=== PATIENT | male | born 1940 | race Caucasian/White ===

== ENCOUNTER → 2018-02-14 08:06 | Outpatient (CLI) | payer MEDICARE, SELFPAY | PROVIDERS: PCP Family Medicine; Visit Provider Family Medicine | DX: R55 Syncope and collapse (principal) | CPT/HCPCS: 93005; 93225; 93226 ==

== ENCOUNTER → 2018-02-18 08:35 | Outpatient (CLI) | payer MEDICARE, SELFPAY ==
--- NOTE | 2018-02-18 08:42 | CI_ITS ---
Cerebrovascular Exam IMPRESSIONS 1. The bilateral vertebral arteries are patent with normal antegrade flow. 2. Study suggests less than 20% stenosis involving the right internal carotid artery and the left internal carotid artery. History: Syncope. Risk factors: Hypertension. Hyperlipidemia. Carotid duplex study. Complete study and Doppler flow study including spectral analysis, color and fallon scale imaging. Height: Height: 172.7cm. Height: 68in. Weight: Weight: 67.1kg. Weight: 147.7lb. Body mass index: BMI: 22.5kg/m^2. Body surface area: BSA: 1.8m^2. Location: Vascular laboratory. Patient status: Outpatient. Tables: Arterial flow: + +--------+--------+ Location V sys V ed + +--------+--------+ Right CCA - proximal 101cm/s 25.1cm/s + +--------+--------+ Right CCA - distal 88.8cm/s 23.6cm/s + +--------+--------+ Right ECA 91.5cm/s -------- + +--------+--------+ Right ICA - proximal 68.9cm/s 24.8cm/s + +--------+--------+ Right ICA - mid 90.4cm/s 32.5cm/s + +--------+--------+ Right ICA - distal 93.7cm/s 35.3cm/s + +--------+--------+ Right vertebral 38cm/s -------- + +--------+--------+ Left CCA - proximal 130cm/s 23.6cm/s + +--------+--------+ Left CCA - distal 96.6cm/s 22cm/s + +--------+--------+ Left ECA 99.9cm/s -------- + +--------+--------+ Left ICA - proximal 66cm/s 20.7cm/s + +--------+--------+ Left ICA - mid 83.6cm/s 27cm/s + +--------+--------+ Left ICA - distal 89.9cm/s 35.2cm/s + +--------+--------+ Left vertebral 57.2cm/s -------- + +--------+--------+ Velocity ratios: + + + + + + Right, V sys Right, V ed Left, V sys Left, V ed + + + + + + Max ICA/dist CCA 1.06 1.5 0.93 1.6 + + + + + + (Report amended ) Electronically signed by: Chuck Rust [id number]
== END ==
PROVIDERS: PCP Family Medicine; Visit Provider Family Medicine
DX: R55 Syncope and collapse (principal)
CPT/HCPCS: 93880

== ENCOUNTER → 2018-03-31 14:04 | Outpatient (CLI) | payer MEDICARE, SELFPAY ==
[2018-03-31 15:12] LABS: Blood Urea Nitrogen 27 mg/dL (7-18); Creatinine,Serum 1.09 mg/dL (0.70-1.30); Estimated Glomerular Filt Rate 66 ml/min (>60); GFR (African American) 80 ML/MIN (>60)
== END ==
PROVIDERS: Visit Provider Internal Medicine Cardiovascular Disease
DX: Z01.818 Encounter for other preprocedural examination (principal)
CPT/HCPCS: 36415; 82565; 84520

== ENCOUNTER → 2018-04-01 06:23 | Outpatient (CLI) | payer MEDICARE, SELFPAY ==
--- NOTE | 2018-04-01 06:25 | CT_ITS ---
CT chest w con HISTORY: Syncope, abnormal EKG, abnormal Holter monitor ITS.REASON: syncope ORDERING PHYSICIAN: Edwin Kan MD PATIENT AGE: 77 years TECHNIQUE: Axial images obtained following the administration of 75 mL of Isovue 370 . Sagittal, and coronal reformatted images are also generated and reviewed. All CT scans at the facility use one or more dose reduction, viz: automated exposure control; ma/kV adjustment per patient size (including targeted exams where dose is matched to indication; i.e. head); or iterative reconstruction technique. FINDINGS: No mediastinal or hilar mass or adenopathy is evident. There is no evidence of aortic aneurysm or dissection. Coronary artery calcifications are present and are fairly extensive. No evidence of central pulmonary embolus. Calcified nodes are present in the mediastinum and bilateral alonso. 5 mm noncalcified nodule present in the right upper lobe inferiorly. A 5 mm subpleural noncalcified nodules present in the left lower lobe posterior laterally with an additional 6 mm nodule just medial to this which is noncalcified. Calcified granuloma is present in the left upper lobe posteriorly. No effusions or infiltrates. Upper abdominal images are unremarkable. No acute bony anomalies. There are degenerative changes in the thoracic spine with osteophytosis. IMPRESSION: 1. No acute finding. No evidence of aortic aneurysm or central pulmonary embolus. 2. Coronary artery calcifications consistent with coronary artery disease. 3. There are bilateral noncalcified pulmonary nodules measuring up to 6 mm in the left lower lobe. Consider 6 month follow-up to confirm short-term stability.
--- NOTE | 2018-04-01 06:25 | CA_ITS ---
PROCEDURE: 2-D M-mode and color Doppler study INDICATIONS FOR THE TEST: Chest pain COPD Heart Murmur Tobacco Smoking Palpitations Fatigue Syncope+ Edema Hypertension+Diabetes Mellitus Rheumatic Fever SOB GARCIA Obesity Hyperlipidemia+ Family History HD Additional History syncope, abn EKG PATIENT INFORMATION HEIGHT: 68 WEIGHT: 144 GENDER: Male B/P: 138/76 2-D/M-MODE INTERPRETATION: 2-D MEASUREMENTS OBSERVED VALUES IN CMS Right Ventricular Dimension (RVDd) 1.9 Interventricular Septum (Thickness)(IVsd) 0.9 Left Ventricular Internal Dimensions(LVIDd) 5.0 Left Ventricular Posterior Wall (Thickness)(LVPWd) 0.9 Aortic Root 3.5 Aortic Cusp Separation 2.2 Left Atrial Dimensions (LAD) 3.1 2D 1. Left atrium is mildly enlarged, left ventricle is normal size, there is mild qualitative concentric left ventricular hypertrophy, visually estimated ejection fraction 55% with no obvious regional wall motion abnormality. 2. The right atrium and right ventricle are normal size and contractility. 3. The aortic valve is minimally thickened and fibrosed. 4. The mitral and tricuspid valve leaflets are minimally thickened. 5. The pulmonic valve is poorly visualized. 6. No significant pericardial effusion noted. DOPPLER INTERROGATION: Doppler interrogation of the aortic, mitral and tricuspid valvular presence of mild mitral and tricuspid regurgitation, tricuspid and jet velocity insufficient for calculation of the right ventricular systolic pressure, diastolic parameters are inconclusive. CONCLUSION: 1. Mildly enlarged left atrium, normal left ventricular size, mild qualitative concentric left ventricular hypertrophy, visually estimated ejection fraction 55% with no obvious regional wall motion abnormality. Diastolic parameters are inconclusive. 2. Mild mitral and tricuspid regurgitation 3. No significant pericardial effusion noted.
--- NOTE | 2018-04-01 06:25 | NM_ITS ---
SPECT MYOCARDIAL PERFUSION SCAN, REST AND STRESS: EXERCISE STRESS: [facility] REVIEW QGS EF AND WALL MOTION EVALUATION: QPS - PERFUSION EVALUATION: HISTORY: Syncope, HTN PROCEDURE: Rest imaging performed after administration of10.55 millicuries Tc MIBI. Dose administered at6:40 a.m., with imaging thereafter. Stress imaging was then performed [id number] minutes of exercise stress. The patient achieved a heart [id number] with projected heart rate of123 . Resting BP161/90 with stress 185/80. At maximum exercise stress,31.6 millicuries Tc MIBI administered at8:25 a.m. with [id number] minutes thereafter. FINDINGS: Perfusion Evaluation: The single slice spect images as well as the [facility] bull's-eye data summary were reviewed. Wall Motion and Ejection Fraction Evaluation: Gated SPECT review and analysis used to evaluate these features. There is a 58 % left ventricular ejection fraction. There seems to be good wall motion Patient exercised 11 minutes on standard Frank protocol. During exercise he had initially isolated PVCs then ventricular trigeminy. Normal ST response to exercise. Stress images reveal decreased activity in the inferior lateral wall which improves with rest. Gated images calculated ejection fraction of 58% with normal wall motion IMPRESSION: Clinical correlation is advised. Excellent exercise capacity. Patient had ventricular ectopy during exercise. Lateral wall ischemia with normal ejection fraction normal wall motion.
--- NOTE | 2018-04-01 07:34 | HMH.ITSHM ---
rosuvastatin HCTZ METOPROLOL METFORMIN ASA CENTRUM SILVER ESTONIAN GINSENG COQ10 GLUCOSAMINE
== END ==
PROVIDERS: PCP Family Medicine; Visit Provider Internal Medicine Cardiovascular Disease
DX: R55 Syncope and collapse (principal); R94.31 Abnormal electrocardiogram [ECG] [EKG]
CPT/HCPCS: 71260; 78452; 93017; 93306; A9502; Q9967

== ENCOUNTER → 2018-06-25 07:53 | Outpatient (CLI) | payer MEDICARE, SELFPAY ==
[2018-06-25 09:47] LABS: Anion Gap 7.1 mEq/L (5-15); Blood Urea Nitrogen 20 mg/dL (7-18); Calcium 9.6 mg/dL (8.5-10.1); Carbon Dioxide 32 mmol/L (21.0-32.0); Chloride 107 mmol/L (98-107); Creatinine,Serum 1.06 mg/dL (0.70-1.30); Estimated Glomerular Filt Rate 68 ml/min (>60); GFR (African American) 82 ML/MIN (>60); Glucose 138 mg/dL (74-106); Potassium 5.1 mmoL/L (3.5-5.1); Sodium 141 mmol/L (136-145)
== END ==
PROVIDERS: Visit Provider Internal Medicine Cardiovascular Disease
DX: I25.10 Atherosclerotic heart disease of native coronary artery without angina pectoris (principal)
CPT/HCPCS: 36415; 80048

== ENCOUNTER → 2018-07-09 07:50 | Outpatient (CLI) | payer MEDICARE, SELFPAY ==
[2018-07-09 08:26] LABS: Anion Gap 12.8 mEq/L (5-15); Blood Urea Nitrogen 24 mg/dL (7-18); Calcium 9.1 mg/dL (8.5-10.1); Carbon Dioxide 30 mmol/L (21.0-32.0); Chloride 106 mmol/L (98-107); Creatinine,Serum 1.02 mg/dL (0.70-1.30); Estimated Glomerular Filt Rate 71 ml/min (>60); GFR (African American) 86 ML/MIN (>60); Glucose 130 mg/dL (74-106); Potassium 4.8 mmoL/L (3.5-5.1); Sodium 144 mmol/L (136-145)
== END ==
PROVIDERS: Visit Provider Physician Assistant
DX: I25.10 Atherosclerotic heart disease of native coronary artery without angina pectoris (principal)
CPT/HCPCS: 36415; 80048

== ENCOUNTER → 2019-03-17 08:19 | Outpatient (POV) | payer MEDICARE, SELFPAY | PROVIDERS: Visit Provider Dermatology | DX: Z00.00 Encounter for general adult medical examination without abnormal findings (principal) ==

== ENCOUNTER → 2020-03-25 08:26 | Outpatient (CLI) | payer MEDICARE, SELFPAY ==
--- NOTE | 2020-03-25 | CA_ITS ---
APPROVED REPORT Exam: Exercise Treadmill Technologist: Maegan Cueto, Ht: 5 ft 9 in Wt: 153 lbs BSA: 1.84 m2 HR: 78 bpm BP: 114/66 mmHg Rhythm: SINUS RHYTHM WITH PVC Medical History Medical History: HTN Medications: Metoprolol,,,,, Losartan,,,,, TriaMeRTINE,,,,, Allergies: No known drug allergies Cardiac Risk Factors: HTN Stress Test Details Test: Frank HR Resting HR: 81 bpm Max Heart Rate (APMHR): 143 bpm Max HR Achieved: 152 bpm Target HR (85% APMHR): 121 bpm % of APMHR: 106 Recovery HR: 103 bpm BP Resting BP: 127.0/67.0 mmHg Max BP: 160.0/70.0 mmHg Recovery BP: 125.0/88.0 mmHg ECG Resting ECG: SINUS RHYTHM WITH PVC Clinical Exercise duration: 09:27 min Highest Stage Achieved: Exercise capacity: 10.1 METs Stress ECG Conclusion FRANK PROTOCOL COMPLETED. EXERCISED 09:27. METS = 10.1. MAX BP 160/70. MAX HEART RATE 152 BPM WHICH IS 106% OF PM FOR AGE. STOPPED DUE TO SHORTENSS OF BREATH. POSITIVE FOR CHEST PAIN AND SOA AT PEAK EXERCISE. RESOLVED IN RECOVERY. OCCASIONAL PVC. 2 VENTRICULAR COUPLETS NOTED. GREATER THAN 1.5MM ST DEPRESSION IN RECOVERY. GXT ONLY. APPROPRIATE BP RESPONSE.VENTRICULAR COUPLET(2)noted.GOOD EXERCISE CAPACITY.POSITIVE TEST FOR ISCHEMIA. Test Summary RECOVERY 04:00 0.0 0.0 85 . 149/ 80 . . REST . . . . . . . Sitting REST . . . . . . . Sitting REST 03:05 0.0 0.0 81 . 127/ 67 . . Stage 1 01:00 10.0 1.7 93 . . . . Stage 1 02:00 10.0 1.7 103 . . . . Stage 1 03:00 10.0 1.7 109 . 132/ 68 . . Stage 2 01:00 12.0 2.5 115 . . . . Stage 2 02:00 12.0 2.5 120 . 142/ 70 . . Stage 2 03:00 12.0 2.5 124 . 142/ 70 . . Stage 3 01:00 14.0 3.4 132 . . . . Stage 3 02:00 14.0 3.4 136 . 160/ 70 . . Stage 3 03:00 14.0 3.4 138 . 160/ 70 . . Stage 4 00:27 16.0 4.2 144 . . . Stop exercise at 09:27 RECOVERY 01:00 0.0 0.0 103 . . . . RECOVERY 02:00 0.0 0.0 103 . 125/ 88 . . RECOVERY 03:00 0.0 0.0 93 . 149/ 80 . . RECOVERY 04:00 0.0 0.0 85 . 149/ 80 . . RECOVERY 05:00 0.0 0.0 85 . 132/ 71 . . RECOVERY 06:00 0.0 0.0 80 . 138/ 65 . . RECOVERY 06:10 0.0 0.0 82 . 138/ 65 . . Electronically signed by : Esvin Sales, 03/25/2020 16:33:09
== END ==
PROVIDERS: PCP Family Medicine; Visit Provider Family Medicine
DX: R07.89 Other chest pain (principal); I25.10 Atherosclerotic heart disease of native coronary artery without angina pectoris
CPT/HCPCS: 93017

== ENCOUNTER 2020-04-04 08:59 | Day surgery (SDC) | payer MEDICARE, SELFPAY ==
[2020-04-04] VITALS (13 sets, daily range): BP systolic 105–159; BP diastolic 55–90; PULSE 53–83; RESP 16–18; TEMP 36.9; O2SAT 91–97; BMI 23.8
--- NOTE | 2020-04-04 | IR_ITS ---
APPROVED REPORT Patient Location: Outpatient PROCEDURES Left heart catheterization Left ventriculogram Selective coronary angiogram Drug-eluting stent deployment to the ostial proximal mid and distal dominant chronically occluded right coronary artery Angioplasty to the posterior lateral ventricular branch INDICATION Abnormal Myoview, Angina pectoris, Coronary artery disease, Chronically occluded right coronary artery Informed consent was obtained prior to the procedure. COMPLICATIONS NONE Estimated Blood Loss: LESS THAN 10 ML TECHNIQUE 1% lidocaine used to anesthetize the right groin the right femoral artery was accessed via the Salinger technique and a 4 Syrian sheath was placed in the right femoral artery. A JL 5 JR4 catheter was used to perform left heart catheterization left ventriculogram and selective coronary angiogram. At the end of the diagnostic angiogram therapeutic heparin was administered and the 4 Syrian sheath was exchanged for a 6 Syrian sheath. A long 45 cm sheath was required due to tortuosity and inability to adequately torque the catheter. An AL 0.75 guide catheter was used to intubate the chronically occluded right coronary artery and a Choice PT extra-support wire was used to traverse the occlusion. A 3.0 x 38 mm resolute adam stent was placed in the proximal segment and deployed at 12 catrina. An additional 3 mm x 12 mm balloon was then deployed twice distally to open the chronic occlusion. A 3 mm x 22 mm resolute adam stent was then placed distal to the first stent yet still overlapping it and deployed at 18 catrina. The balloon was brought back and deployed at 22 and 24 catrina up and down the right coronary artery. An additional 3.5 x 12 mm resolute adam stent was placed in the ostium and deployed at 20 catrina reducing the stenosis to 0%. A 2 mm balloon was deployed in the posterior lateral branch for 60 seconds in order to open and occlusion which was unknown to be either chronic occlusion of the posterior lateral branch or possible thrombus. The vessel was open after the angioplasty without excellent results. After achieving excellent angiographic results in the right coronary artery from CANDICE 0 flow to CANDICE-3 flow the apparatus was removed the groin was reprepped gloves were changed sheath was removed good hemostasis was achieved using Perclose device patient was transferred to the postop holding area in stable condition. ANGIOGRAPHIC RESULTS The left main artery Normal The left anterior descending artery Has proximal 30% stenosis mid vessel tandem 40 to 50% stenoses. The circumflex artery Nondominant vessel has mild 10 to 20% luminal irregularities The right coronary artery Is a large dominant vessel and proximally occluded. At the end of the procedure the vessel was widely patent with excellent antegrade flow The MYLES ventriculogram reveals Normal 65% The left ventricular end-diastolic pressure 20 mmHg IMPRESSION Chronically occluded proximal dominant right coronary artery Successful revascularization of the ostial proximal mid distal dominant right coronary artery 100% occlusion reduced to 0% with 3 drug-eluting stents as described above Partially successful angioplasty of the posterior lateral ventricular branch unknown if it is chronic or acutely occluded Normal ejection fraction Elevated LVEDP PLAN 1. Brilinta 90 twice daily plus aspirin 81 mg daily for 1 year 2. LDL less than 55 3. Cardiac rehabilitation 4. Avoidance of tobacco products 5. Risk factor modification Electronically signed by : Damian Paz, 04/04/2020 12:51:00
[2020-04-04 09:36] LABS: Chloride 104 mmol/L (98-107); Potassium 4.3 mmoL/L (3.5-5.1); Sodium 138 mmol/L (136-145)
[2020-04-04 09:39] LABS: Blood Urea Nitrogen 24 mg/dl (9-20); Creatinine Clearance Estimated 62 mL/min (50-200); Estimated Glomerular Filt Rate 72 ml/min (>60); GFR (African American) 88 ML/MIN (>60)
[2020-04-04 09:40] LABS: Anion Gap 6.3 mEq/L (5-15); Calcium 9.6 mg/dl (8.4-10.2); Carbon Dioxide 32 mmol/L (22.0-30.0); Glucose 151 mg/dl (74-100)
[2020-04-04 09:41] LABS: Basophils # 0.1 K/mm3 (0-0.2); Basophils % 0.7 % (0.1-2.0); Eosinophils # 0.1 K/mm3 (0.0-0.4); Eosinophils % 1.9 % (0.1-12.0); Hematocrit 47.9 % (42.0-52.0); Hemoglobin 15.3 g/dL (14.1-18.0); Lymphocytes # 1.8 K/mm3 (0.7-4.5); Lymphocytes % 24.7 % (10-50); Mean Corpuscular Hemoglobin 30.4 pg (27.0-31.2); Mean Corpuscular Volume 94.8 fl (80-94); Monocytes # 0.4 K/mm3 (0.1-1.0); Monocytes % 5.6 % (1.7-9.3); Neutrophils # 4.8 K/mm3 (1.8-7.8); Neutrophils % 67.1 % (37.0-80.0); Platelet Count 279 K/mm3 (142-424); Red Blood Count 5.05 M/mm3 (4.60-6.20); Red Cell Distribution Width 13.2 % (11.5-17.5); White Blood Count 7.1 K/mm3 (4.8-10.8)
[2020-04-04 15:14] LABS: CATHL Activated Clotting Time 222 SEC (74-125)
--- NOTE | 2020-04-04 15:53 | HMH.PHACLD ---
Homer Shirley has received discharge medication counseling on the following medications: Patient currently taking losartan 50 mg daily, metoprolol succinate 12.5 mg daily, and rosuvastatin 10 mg hs. adding Brilinta 90 mg bid and aspirin 81 mg daily. Patient's first fill for Bril[facility].
== END 2020-04-04 15:55 | disposition home or self-care (01) ==
LOC: CATHLAB 09:00
PROVIDERS: PCP Family Medicine; Visit Provider Internal Medicine
DX: R94.30 Abnormal result of cardiovascular function study, unspecified (principal); I25.118 Atherosclerotic heart disease of native coronary artery with other forms of angina pectoris; Z79.84 Long term (current) use of oral hypoglycemic drugs; E11.9 Type 2 diabetes mellitus without complications; I10 Essential (primary) hypertension; E78.5 Hyperlipidemia, unspecified; I25.82 Chronic total occlusion of coronary artery
CPT/HCPCS: 80048; 85025; 85347; 92928; 92929; 93458; 99152; 99153; C1725; C1760; C1769; C1876; C9600; C9601; J1644; Q9967

== ENCOUNTER 2020-04-11 14:37 | Outpatient (RCR) | payer MEDICARE, SELFPAY | END 2020-05-09 13:37 | disposition home or self-care (01) | LOC: PT 14:37 | PROVIDERS: Visit Provider Internal Medicine | DX: Z95.5 Presence of coronary angioplasty implant and graft (principal) | CPT/HCPCS: 93798 ==

== ENCOUNTER → 2020-04-14 08:04 | Outpatient (CLI) | payer MEDICARE, SELFPAY ==
[2020-04-14 08:26] LABS: Chloride 107 mmol/L (98-107); Potassium 4.4 mmoL/L (3.5-5.1); Sodium 138 mmol/L (136-145)
[2020-04-14 08:29] LABS: Anion Gap 10.4 mEq/L (5-15); Blood Urea Nitrogen 24 mg/dl (9-20); Carbon Dioxide 25 mmol/L (22.0-30.0); Estimated Glomerular Filt Rate 72 ml/min (>60); GFR (African American) 88 ML/MIN (>60)
[2020-04-14 08:30] LABS: Calcium 9.5 mg/dl (8.4-10.2); Glucose 159 mg/dl (74-100)
[2020-04-14 08:52] LABS: Basophils # 0.1 K/mm3 (0-0.2); Eosinophils # 0.2 K/mm3 (0.0-0.4); Eosinophils % 2.3 % (0.1-12.0); Hematocrit 47.9 % (42.0-52.0); Hemoglobin 15.5 g/dL (14.1-18.0); Lymphocytes # 1.7 K/mm3 (0.7-4.5); Lymphocytes % 24.7 % (10-50); Mean Corpuscular HGB Conc 32.2 g/dL (31.8-35.4); Mean Corpuscular Hemoglobin 30.7 pg (27.0-31.2); Mean Corpuscular Volume 95.3 fl (80-94); Mean Platelet Volume 7.4 fl (7.4-10.4); Monocytes # 0.4 K/mm3 (0.1-1.0); Neutrophils # 4.7 K/mm3 (1.8-7.8); Platelet Count 254 K/mm3 (142-424); Red Blood Count 5.03 M/mm3 (4.60-6.20); Red Cell Distribution Width 13.6 % (11.5-17.5)
--- NOTE | 2020-04-14 10:11 | CA_ITS ---
APPROVED REPORT Hand Or Machine Paster: Nicole Cobb RT(R) Indications Patient had a heart cath 04/04/20. He presents today with a knot in the groin. States the knot has been there since his heart cath. The knot was sore initially but isn't anymore. Risk Factors Hypertension Findings Groin: Right Negative Conclusion No evidence of pseudoaneurysm, hematoma, or AV fistula of the right groin. Electronically signed by : Chuck Rust MD 04/14/2020 16:16:33
== END ==
LOC: LAB 08:05 → RT 10:12
PROVIDERS: PCP Family Medicine; Visit Provider Internal Medicine
DX: E78.5 Hyperlipidemia, unspecified (principal); I10 Essential (primary) hypertension; I25.10 Atherosclerotic heart disease of native coronary artery without angina pectoris; I77.0 Arteriovenous fistula, acquired; Z95.5 Presence of coronary angioplasty implant and graft
CPT/HCPCS: 36415; 80048; 85025; 93926

== ENCOUNTER → 2020-05-12 10:44 | Outpatient (CLI) | payer MEDICARE, SELFPAY | PROVIDERS: PCP Family Medicine; Visit Provider Internal Medicine Cardiovascular Disease | DX: E78.5 Hyperlipidemia, unspecified (principal); I10 Essential (primary) hypertension; I25.10 Atherosclerotic heart disease of native coronary artery without angina pectoris; I34.0 Nonrheumatic mitral (valve) insufficiency; Z95.5 Presence of coronary angioplasty implant and graft | CPT/HCPCS: 93306 ==

== ENCOUNTER → 2021-03-14 08:02 | Outpatient (POV) | payer MEDICARE, SELFPAY | PROVIDERS: Visit Provider Dermatology | DX: Z00.00 Encounter for general adult medical examination without abnormal findings (principal) ==

== ENCOUNTER → 2021-08-10 11:12 | Outpatient (CLI) | payer MEDICARE, SELFPAY | PROVIDERS: PCP Family Medicine; Visit Provider Physician Assistant | DX: Z20.822 Contact with and (suspected) exposure to COVID-19 (principal) | CPT/HCPCS: C9803; U0003; U0005 ==

== ENCOUNTER → 2022-07-23 06:47 | Outpatient (CLI) | payer MEDICARE, SELFPAY ==
[2022-07-23 07:58] LABS: Blood Urea Nitrogen 18 mg/dl (9-20); Estimated Glomerular Filt Rate 72 ml/min (>60); GFR (African American) 87 ML/MIN (>60)
== END ==
PROVIDERS: PCP Family Medicine; Visit Provider Family Medicine
DX: G44.52 New daily persistent headache (NDPH) (principal)
CPT/HCPCS: 36415; 82565; 84520

== ENCOUNTER → 2022-07-25 08:05 | Outpatient (CLI) | payer MEDICARE, SELFPAY ==
--- NOTE | 2022-07-25 08:12 | CT_ITS ---
FINAL REPORT TECHNIQUE: Multiple axial CT sections were performed from the foramen magnum to the vertex. Coronal reformatted images were also obtained. Precontrast and postcontrast injection images were obtained. This study was performed with technique to keep radiation doses as low as reasonably achievable, (ALARA). Individualized dose reduction techniques using automated exposure control or adjustment of mA and/or kV according to the patient size were employed. CLINICAL HISTORY: NEW DAILY PERSISTANT HEADACHE x several months FINDINGS: The ventricles are normal in size. There is no evidence of hemorrhage. No masses are identified. There is a chronic lacunar infarct at the head of the right caudate. There is a chronic right posterior periventricular lacunar infarct. No extra-axial fluid collection is seen. There is mucosal thickening in the maxillary sinuses and multiple ethmoid air cells. No osseous abnormality is seen on the bone window images. Postcontrast images demonstrate no abnormal enhancement. IMPRESSION: No acute intracranial abnormality. No abnormal contrast enhancement. 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 Reviewed, Interpreted and Dictated by Bharath Albrecht III, MD Transcribed by Angelina Chew Authenticated and [facility]
== END ==
PROVIDERS: PCP Family Medicine; Visit Provider Family Medicine
DX: G44.52 New daily persistent headache (NDPH) (principal)
CPT/HCPCS: 70470; Q9967

== ENCOUNTER 2022-07-26 17:07 | Inpatient (IN) | payer MEDICARE, SELFPAY ==
[2022-07-26] VITALS (17 sets, daily range): BP systolic 119–147; BP diastolic 42–83; PULSE 50–70; RESP 16–20; TEMP 36.6–37.1; O2SAT 95–98; BMI 21.4; BMI 21.7
--- NOTE | 2022-07-26 | IR_ITS ---
APPROVED REPORT Patient Location: [facility] Home: DOUGLAS Mojica RT (R) PROCEDURES Left heart catheterization Left ventriculogram Selective coronary angiogram INDICATION Acute high lateral ST elevation myocardial infarction, Coronary artery disease Informed consent was obtained prior to the procedure. COMPLICATIONS none Estimated Blood Loss: less than 10 ml TECHNIQUE 1% lidocaine used anesthetize right groin the right femoral artery was accessed via the Salinger technique and a 6 [place] hydrophilic sheath was placed in the right femoral artery. An EBU 3.75 guide catheter was placed in left main artery and diagnostic angiography was performed. Following this a 6 [place] JR4 catheter was used to perform right coronary selective angiography as well as left ventriculogram and left heart catheterization. At the end of the procedure the apparatus was removed the groin is reprepped closure change sheath was removed and hemostasis was achieved using Perclose device patient was transferred to the postop holding in stable condition ANGIOGRAPHIC RESULTS The left main artery Has mild 10% luminal irregularities The left anterior descending artery Has proximal 20 to 30% stenoses with a mid vessel 40 and 50% stenosis. A high diagonal artery/ramus intermedius is bluntly occluded with no collateralization. A second moderate-sized diagonal artery has CANDICE-3 flow and has an ostial 50% stenosis. The circumflex artery Is a nondominant vessel and has proximal 30 to 40% stenoses. The right coronary artery Is a dominant vessel and has a stent in the proximal and mid segment which is widely patent with minimal in-stent restenosis. Distally the vessel has 30% stenosis. The MYLES ventriculogram reveals High lateral akinesis with estimate ejection fraction of 45% The left ventricular end-diastolic pressure [address] elevation myocardial infarction involving a highly diagonal artery/ramus intermedius which originates immediately off the left main artery in the proximal LAD. The vessel was bluntly occluded and cannot be angiographically identified Regional wall motion abnormality with mildly reduced ejection fraction Mildly elevated LVEDP PLAN 1. Dual antiplatelet therapy is still required 2. I recommend medical management for the STEMI. The origin of the ramus intermedius cannot be identified and I do not recommend probing with a wire so close to the left main artery which could necessitate trifurcating stenting or damaging the LAD and circumflex artery. Patient is a low risk from a cardiac mortality standpoint with a branch vessel myocardial infarction. 3. It will be important to keep blood pressure and heart rate low and continue with afterload reducing medicine such as MIKE inhibitor's or ARB's. Avoid steroids as this increases the risk of free wall rupture 4. Continue supportive care 5. Treatment of pain which is currently mild 6. Continue with statin therapy and LDL less than 55 7. Echocardiogram in the morning 8. Patient needs to remain in the hospital for at least 48 hours Electronically signed by : Damian Paz MD 07/26/2022 18:37:39
--- NOTE | 2022-07-26 17:02 | ECG_ITS ---
APPROVED REPORT Exam: Resting ECG HR:52 bpm ECG Measurements Heart Rate 52 AXES PA 187 P 94 QRSd 101 QRS -50 QT 421 T -3 QTc 400 Conclusion SINUS BRADYCARDIA INCOMPLETE RIGHT BUNDLE BRANCH BLOCK [90+ ms QRS DURATION, TERMINAL R IN V1/V2, 40+ ms S IN I/aVL/V4/V5/V6] LEFT ANTERIOR FASCICULAR BLOCK [QRS AXIS <= -45, QR IN I, RS IN II] SEPTAL MYOCARDIAL INFARCTION , PROBABLY OLD [40+ ms Q WAVE IN V1/V2] ST DEPRESSION, CONSIDER SUBENDOCARDIAL INJURY [0.1+ mV ST DEPRESSION] ABNORMAL ECG UNCONFIRMED REPORT Electronically signed by : Sudhir Romero MD 07/27/2022 17:09:41
--- NOTE | 2022-07-26 17:11 | XR_ITS ---
PROCEDURE INFORMATION: Exam: XR Chest Exam date and time: 07/26/2022 5:18 PM Age: 81 years old Clinical indication: Pain; Angina pectoris; Additional info: STEMI TECHNIQUE: Imaging protocol: Radiologic exam of the chest. Views: 1 view. Portable AP exam 5:19 p.m. COMPARISON: CHESTW CT chest w con 04/01/2018 9:39 AM FINDINGS: Tubes, catheters and devices: Overlying monitoring tech electrodes and cardioversion paddles. Overlying facial mask. Lungs: Pulmonary vessels do not appear congested. No acute pulmonary findings. No pulmonary consolidation. Lung volumes within normal limits. Pleural spaces: Unremarkable as visualized, costophrenic angles are clipped off the field of view. No significant pleural effusion. No pneumothorax. Heart/Mediastinum: Slightly enlarged cardiac silhouette, but this is accentuated by portable AP technique. Bones/joints: There are spinal degenerative changes, with multilevel disc narrrowing and spondylosis. Bilateral acromioclavicular arthritis. IMPRESSION: 1. No acute findings. 2. No pulmonary consolidation. Pulmonary vessels do not appear congested. 3. Additional nonemergency and chronic findings as above.
--- NOTE | 2022-07-26 17:17 | HMH.EDGENADL ---
Discharge Plan Disposition Patient Disposition: Admitted As Inpatient Condition: Serious Clinical Impressions Clinical Impression: ST elevation (STEMI) myocardial infarction Qualifiers: Involved coronary artery: left circumflex coronary artery Qualified Code(s): I21.21 - ST elevation (STEMI) myocardial infarction involving left circumflex coronary artery Discharge ED Provider: Jc Hernandez General Adult HPI General Chief complaint: Chest Pain Stated complaint: CHEST PAIN Time Seen by Provider: 07/26/22 17:07 Mode of Arrival: Ambulatory Source of Information: Patient Limitations: No Limitations History of Present Illness HPI narrative: This is a 81-year-old male with history of ACS status post stenting, hypertension, hyperlipidemia who is presenting with chest pain. Chest pain has been intermittent for the last couple of days, but today has been persistent for the past 2 or 3 hours. Onset was 1 patient was laying mulch. Chest pain is mild, burning/pressure, radiates through to between his shoulder blades and is associated with left upper extremity weakness and tingling. Denies shortness of breath, nausea, vomiting, diaphoresis, other focal neurologic deficits. Nothing in particular makes it better, exertion seems to make it worse. Related Data Home Medications Medication Instructions Recorded Confirmed coenzyme Q10 100 mg capsule (Co 100 mg PO DAILY 02/12/18 05/04/22 Q-10) glucosamine HCl 500 mg tablet 500 mg PO BID 02/12/18 05/04/22 metformin 500 mg tablet 500 mg PO BID 02/12/18 05/04/22 (Glucophage) arbqtupd-mrg-oaucq acid 300 tab PO 02/12/18 05/04/22 mcg-lycopene 600 mcg-lutein 300 mcg tablet (Centrum Silver Men) saw palmetto 160 mg capsule 160 mg PO BID 02/19/18 05/04/22 aspirin 81 mg chewable tablet 81 mg PO DAILY Blood thinner 04/06/20 05/04/22 Previous Rx's Medication Instructions Recorded losartan 50 mg tablet 50 mg PO QDAY #90 tabs 03/31/20 metoprolol succinate 25 mg 25 mg PO DAILY #90 tabs 12/25/21 tablet,extended release 24 hr (Toprol XL) rosuvastatin 40 mg tablet See Rx Instructions .Route 06/18/22 .COMPLEX #90 tabs Allergies Allergy/AdvReac Type Severity Reaction Status Date / Time No Known Allergies Allergy Verified 05/04/22 09:25 [facility] Medical History (Updated 07/26/22 @ 17:23 by Jc Hernandez MD) Dizziness Social History Smoking Status: Never smoker second hand exposure: No alcohol intake: never substance use type: denies use current occupational status: retired Travel in the last 8 weeks: Inside the [place] household members: spouse housing: house current occupational exposures/hazards: No caffeine: No ROS Obtained: Yes All systems reviewed & no additional complaints except as documented Physical Exam General General appearance: alert and in no apparent distress Head Head exam: atraumatic, normocephalic and normal inspection Eye Eye exam: Present normal appearance, PERRL and EOMI ENT ENT exam: Present normal exam, normal oropharynx, mucous membranes moist, TM's normal bilaterally and normal external ear exam Neck Neck exam: Present normal inspection, full ROM and trachea midline; Absent meningismus or lymphadenopathy Chest Chest inspection: Present normal inspection and symmetric chest wall rise; Absent tenderness Respiratory Respiratory exam: Present normal lung sounds bilaterally; Absent respiratory distress Cardiovascular Cardiovascular exam: Present regular rate and normal rhythm; Absent JVD Abdominal Exam Abdominal exam: Present soft and normal bowel sounds; Absent distention, tenderness or guarding Extremities Exam Extremities exam: Present normal inspection, full ROM and normal capillary refill; Absent calf tenderness Back Exam Back exam: Present normal inspection; Absent tenderness Neurological Exam Neurological exam: Present alert and oriented X3 Psychiatric Psychiatric exam: Present normal affect and n
[2022-07-26 17:39] LABS: Basophils # 0.1 K/mm3 (0-0.2); Basophils % 1.4 % (0.1-2.0); Eosinophils # 0.1 K/mm3 (0.0-0.4); Eosinophils % 1.9 % (0.1-12.0); Hematocrit 47.5 % (42.0-52.0); Hemoglobin 14.7 g/dL (14.1-18.0); Lymphocytes # 2.3 K/mm3 (0.7-4.5); Mean Corpuscular HGB Conc 31.1 g/dL (31.8-35.4); Mean Corpuscular Hemoglobin 31.1 pg (27.0-31.2); Mean Platelet Volume 8.3 fl (7.4-10.4); Monocytes # 0.4 K/mm3 (0.1-1.0); Monocytes % 5.4 % (1.7-9.3); Neutrophils # 4.3 K/mm3 (1.8-7.8); Neutrophils % 59.3 % (37.0-80.0); Platelet Count 231 K/mm3 (142-424); Red Blood Count 4.75 M/mm3 (4.60-6.20); Red Cell Distribution Width 13.5 % (11.5-17.5); White Blood Count 7.3 K/mm3 (4.8-10.8)
[2022-07-26 17:43] LABS: Anion Gap 11.3 mEq/L (5-15); Blood Urea Nitrogen 20 mg/dl (9-20); Carbon Dioxide 28 mmol/L (22.0-30.0); Chloride 106 mmol/L (98-107); Creatinine Clearance Estimated 56 mL/min (50-200); Estimated Glomerular Filt Rate 72 ml/min (>60); GFR (African American) 87 ML/MIN (>60); Glucose 157 mg/dl (74-100); Potassium 4.3 mmoL/L (3.5-5.1); Sodium 141 mmol/L (136-145)
--- NOTE | 2022-07-26 17:45 | PC.NURSE ---
ER SPEAKING WITH DR CLEARY FOR ADMISSION
[2022-07-26 18:00] LABS: Troponin I 0.26 ng/ml (0.00-0.034)
--- NOTE | 2022-07-26 18:02 | PC.NURSE ---
DR CLEARY HAS AGREED TO ADMIT FOR DR ARMENTA
--- NOTE | 2022-07-26 18:28 | PC.NURSE ---
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
--- NOTE | 2022-07-26 18:51 | PC.NURSE ---
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
--- NOTE | 2022-07-26 18:52 | SUR.PHASEII ---
Late entry 1800: Lab called with elevated trop of 0.26 Pt in process of having heart cath. Dr Paz notified of lab results
[2022-07-26 18:57] LABS: Coronavirus 19, PCR Not Detected (NotDetected); Influenza A, PCR Not Detected (NotDetected); Influenza B, PCR Not Detected (NotDetected)
--- NOTE | 2022-07-26 19:16 | ECG_ITS ---
APPROVED REPORT Exam: Resting ECG HR:55 bpm ECG Measurements Heart Rate 55 AXES [place] 191 P 71 QRSd 97 QRS -25 QT 423 T 42 QTc 411 Conclusion SINUS BRADYCARDIA BORDERLINE LEFT AXIS DEVIATION [QRS AXIS < -20] MODERATE ST DEPRESSION [0.05+ mV ST DEPRESSION] ABNORMAL ECG INTERPRETATION BASED ON A DEFAULT AGE OF 40 YEARS UNCONFIRMED REPORT Electronically signed by : Sudhir Romero MD 07/27/2022 17:09:17
--- NOTE | 2022-07-26 19:26 | PC.NURSE ---
pt c/o cp. ekg obtained and connor paged. connor made aware of ekg results. ordered prn morphine for pain. order faxed to night watch
[2022-07-27] VITALS (9 sets, daily range): BP systolic 116–129; BP diastolic 55–72; PULSE 50–73; RESP 16–18; TEMP 36.4–37.4; O2SAT 96–99; BMI 21.6
--- NOTE | 2022-07-27 05:10 | PC.NURSE ---
pt s/p heart cath with perc closure to right groin site, and attempted right radial access, both dressings CDI with no hematoma noted, +pedal pulses, both extremities pink and warm, VSS, telemetry reveals sinus to sinus braday, pt complained of chest pain at start of shift and morhpine 2mg given IV with relief, pt denied any more chest pain through the night; VSS, pt is alert and oriented x4, no other issues or concerns noted at this time.
--- NOTE | 2022-07-27 09:28 | P.CONPHA_ITS ---
Pharmacy Intervention Comments: clarified home medication list using list from outpatient pharmacy ([facility])
--- NOTE | 2022-07-27 09:28 | HMH.PHAINT1 ---
Pharmacy Intervention Comments: clarified home medication list using list from outpatient pharmacy ([facility])
--- NOTE | 2022-07-27 09:39 | EXP.HP ---
History of Present Illness *Admission Date: 07/26/22 *Reason for visit:: Chest pain *History of present illness: HPI narrative: This is a 81-year-old male with history of ACS status post stenting, hypertension, hyperlipidemia who is presenting with chest pain.? Chest pain has been intermittent for the last couple of days, but today has been persistent for the past 2 or 3 hours.? Onset was 1 patient was laying mulch.? Chest pain is mild, burning/pressure, radiates through to between his shoulder blades and is associated with left upper extremity weakness and tingling.? Denies shortness of breath, nausea, vomiting, diaphoresis, other focal neurologic deficits.? Nothing in particular makes it better, exertion seems to make it worse. ?EKG done upon arrival demonstrated sinus bradycardia at [address] elevations in lead I and aVL with reciprocal depressions in II, III, aVF.? Given this, Mrb Engineer was activated.? Patient was given 325 mg aspirin chewable, 180 mg Brilinta, given 5000 unit heparin bolus.? Chest x-ray obtained.? Pads were placed on patient.? Patient was urgently transferred to Mrb Engineer before results of labs and imaging returned.? Results were relayed to patient who voiced understanding and were agreeable to inpatient admission and management.? Patient was admitted to the hospital for further definitive management, and hemodynamically stable during entire stay in the emergency department. The above as per ER documentation. Patient also has a history of hyperlipidemia, type 2 diabetes mellitus, BPH, And HTN. troponin was 0.26 on admission. chest x-ray revealed no acute findings. This a.m. patient has some slight left anterior chest discomfort. He denies shortness of breath. He is slightly nauseated and was not able to eat much breakfast. [facility] Medical History (Updated 07/27/22 @ 10:00 by Fifi Burns APRN) BPH (benign prostatic hyperplasia) Dizziness Fusion of lumbar spine History of left heart catheterization (LHC) Hyperlipidemia Hypertension Surgical History (Updated 07/26/22 @ 20:27 by Lucrecia Panchal RN) History of heart artery stent History of right heart catheterization (RHC) Family History (Updated 07/27/22 @ 10:01 by Fifi Burns APRN) Cancer Stroke Social History (Updated 07/26/22 @ 20:28 by Lucrecia Panchal RN) Smoking Status: Never smoker second hand exposure: No alcohol intake: never substance use type: denies use current occupational status: retired Travel in the last 8 weeks: Inside the [place] household members: spouse housing: house current occupational exposures/hazards: No caffeine: No Review of Systems Constitutional Constitutional: Denies body ache(s), Denies chills and Reports headache(s) Eyes Eyes: Denies change in vision ENT Ears, Nose, Mouth, and Throat: Denies dizziness, Denies otalgia, Reports headache(s), Reports nasal congestion and Denies sore throat *Cardiovascular Cardiovascular: Reports chest pain and Denies dyspnea *Respiratory Respiratory: Denies chest congestion, Denies cough and Denies dyspnea *Gastrointestinal Gastrointestinal: Denies change in stool character, Reports nausea and Denies vomiting *Genitourinary Genitourinary: Denies difficulty urinating *Musculoskeletal Musculoskeletal: Denies abnormal gait and Denies muscle weakness *Neurologic Neurologic: Denies abnormal gait, Denies dizziness and Reports headache(s) Meds Home Medications and Allergies Home Medications Medication Instructions Recorded Confirmed Type coenzyme Q10 100 mg capsule (Co 100 mg PO DAILY Supplement 02/12/18 07/26/22 History Q-10) metformin 500 mg tablet 500 mg PO BID Diabetes 02/12/18 07/26/22 History (Glucophage) hvilnxkf-inu-tsfgl acid 300 1 tab PO DAILY Supplement 02/12/18 07/26/22 History mcg-lycopene 600 mcg-lutein 300 mcg tablet (Centrum Silver Men) saw palmetto 160 mg capsule 160 mg PO BID prostate health 02/19/18 09
--- NOTE | 2022-07-27 10:37 | EXP.CARD.CON ---
History of Present Illness History of Present Illness Consult date: 07/27/22 Requesting physician: Sheela Munson Consult reason: chest pain Chief complaint: stemi Additional Medical History:: Past medical hx CAD with previous stening HTN HLD DM [facility] 07/26 ANGIOGRAPHIC RESULTS The left main artery Has mild 10% luminal irregularities The left anterior descending artery Has proximal 20 to 30% stenoses with a mid vessel 40 and 50% stenosis.? A high diagonal artery/ramus intermedius is bluntly occluded with no collateralization.? A second moderate-sized diagonal artery has CANDICE-3 flow and has an ostial 50% stenosis. The circumflex artery Is a nondominant vessel and has proximal 30 to 40% stenoses. The right coronary artery Is a dominant vessel and has a stent in the proximal and mid segment which is widely patent with minimal in-stent restenosis.? Distally the vessel has 30% stenosis. The MYLES ventriculogram reveals High lateral akinesis with estimate ejection fraction of 45% The left ventricular end-diastolic pressure [address] elevation myocardial infarction involving a highly diagonal artery/ramus intermedius which originates immediately off the left main artery in the proximal LAD.? The vessel was bluntly occluded and cannot be angiographically identified Regional wall motion abnormality with mildly reduced ejection fraction Mildly elevated LVEDP PLAN 1. Dual antiplatelet therapy is still required 2. I recommend medical management for the STEMI.? The origin of the ramus intermedius cannot be identified and I do not recommend probing with a wire so close to the left main artery which could necessitate trifurcating stenting or damaging the LAD and circumflex artery.? Patient is a low risk from a cardiac mortality standpoint with a branch vessel myocardial infarction. 3. It will be important to keep blood pressure and heart rate low and continue with afterload reducing medicine such as MIKE inhibitor's or ARB's.? Avoid steroids as this increases the risk of free wall rupture 4. Continue supportive care 5. Treatment of pain which is currently mild 6. Continue with statin therapy and LDL less than 55 7. Echocardiogram in the morning 8. Patient needs to remain in the hospital for at least 48 hours History of present illness: 81 year old white male with above past medical hx presented to ED yesterday with complaint of ongoing midsternal chest pressure radiating to back between shoulder blades associated with some weakness and tingling to left arm. Patient reports pain had been intermittent the last few days but started around mid afternoon and continued prompting patient to go to ER. Upon presentation to ER EKG showed sinus bradycardia at 52bpm with ST elevations in lead I and aVL with reciprical depression in II, III, and aVF. laboratory analyst was activated for stemi, see cath report above. Today, patient reports mild chest pressure at times. denies soa. PFSH PFSH Medical History BPH (benign prostatic hyperplasia) Dizziness Fusion of lumbar spine History of left heart catheterization (LHC) Hyperlipidemia Hypertension Surgical History History of heart artery stent History of right heart catheterization (RHC) Family History Other Cancer Stroke Social History Smoking Status: Never smoker second hand exposure: No alcohol intake: never substance use type: denies use current occupational status: retired Travel in the last 8 weeks: Inside the [place] household members: spouse housing: house current occupational exposures/hazards: No caffeine: No Review of Systems Review of Systems Review of systems:: pertinent systems reviewed and negative unless docume
--- NOTE | 2022-07-27 10:39 | CA_ITS ---
APPROVED REPORT EXAM: Comprehensive 2D, Doppler, and color-flow Echocardiogram Breakfast Host: Chelsie Lynn CRT Ht: 5 ft 8 in Wt: 148lbs BSA: 1.80 BP: 124/88 mmHg Indications: Chest Pain, Shortness of Breath, Hyperlipidemia, Hypertension/HDD, stents, cad 2D Dimensions LVOT 1.96 cm (M/F) 1.5-2.5 LA Volume 22.00 mL LA Volume Index 12.20 mL/m2 (M/F) 16-34 M-Mode Dimensions RVDd 3.30 cm (0.9-2.6) LA Diam 3.55 cm (1.9-4.0) LVDd 4.58 cm (3.5-5.7) Ao Diam 4.11 cm (2.0-3.7) LVDs 2.98 cm (3.5-5.7) IVSd 1.92 cm (0.6-1.1) PWd 0.92 cm (0.6-1.1) EF (Teich) 64.30% FS 34.90% EDV (Teich) 96.30 mL TAPSE 1.75 (<1.7) ESV (Teich) 34.40 mL LV Diastology E Decel Time 150.00 (160-240 msec) E/A Ratio 3.52 MED E' 6.40 (< 7 cm/sec) MED A' 10.00 cm/s E'/MED E' Ratio 13.55 (>14) LAT E' 8.80 (<10 cm/sec) LAT A' 14.00 cm/s E/LAT E' Ratio 9.85 (>14) Aortic Valve AI PHT 780.00 ms Mitral Valve MV E Max Sumeet. 87.00 (40-130 cm/s) MV A Velocity 25.00 (40-130 cm/s) E/A Ratio 3.52 MV Decel. Time 150.00 (160-240 ms) MV PHT 44.00 ms Pulmonary Valve PV Peak Velocity 158.00 (50-150 cm/s) Tricuspid Valve TR P. Velocity 257.00 cm/s RAP Estimate 10.00 mmHg RVSP 36.50 mmHg Left Ventricle Left atrium is mildly enlarged, left ventricle is normal size mild concentric left ventricular hypertrophy, estimated ejection fraction 55% with no regional wall motion abnormality, diastolic parameters are inconclusive. Right Ventricle Right atrium and right ventricle are mildly enlarged with normal contractility. Aortic Valve Aortic valve is minimally thickened and fibrosed there is no aortic stenosis or aortic insufficiency. Mitral Valve Mitral valve leaflets are minimally thickened, there is mild mitral regurgitation. Tricuspid Valve Tricuspid valve grossly normal, there is mild tricuspid regurgitation, tricuspid regurgitation Is inadequate for calculation of the right ventricular systolic pressure. Pulmonic Valve Pulmonic valve is poorly visualized. Great Vessels Aortic root is normal size. Inferior vena cava is poorly visualized. Pericardium No significant pericardial effusion noted. Conclusion 1. Mild biatrial enlargement, normal left ventricular size, mild concentric left ventricular hypertrophy, estimated ejection fraction 55% with no regional wall motion abnormality diastolic parameters are inconclusive. 2. Mildly enlarged right ventricle with normal contractility. 3. Mild mitral and tricuspid regurgitation. 4. No significant pericardial effusion noted. 5. Inferior vena cava is poorly visualized. Electronically signed by : Edwin Kan MD 07/27/2022 12:56:23
[2022-07-27 12:42] LABS: Chol/HDL Ratio 2.3 (1-3.5); Cholesterol 107 mg/dl (140-200); HDL Cholesterol 47 mg/dl (40-60); Triglycerides 78 mg/dl (30-150); VLDL Cholesterol 16 mg/dL (0-40)
--- NOTE | 2022-07-27 15:38 | PC.NURSE ---
Pt is A/Ox4. He has been up walking the halls a few times. He has tolerated the cardiac diet. He has complained of no pain at all.
[2022-07-28] VITALS (9 sets, daily range): BP systolic 105–124; BP diastolic 46–68; PULSE 50–80; RESP 14–20; TEMP 36.6–37.2; O2SAT 96–99; BMI 21.6
--- NOTE | 2022-07-28 05:41 | PC.NURSE ---
pt has slept most of this shift. he is a&oX4. no c/o cp or soa. right radial and femoral cath site dressings c/d/i. telemetry shows sinus [place]-NSR with HR being 50-60.call light with in reach, no needs at this time.
--- NOTE | 2022-07-28 10:51 | P.PN_ITS ---
Subjective *Date: 07/28/22 *Time: 10:59 Interval history: He seems to be doing well. He reports that he had a little bit of discomfort in the chest yesterday but not severe. It was mild and episodic. His heart monitor has shown no dysrhythmia. He has been up and about. He complains of a headache which has been ongoing for a few weeks. A recent CT scan showed mucosal thickening in the maxillary sinuses. I will treat with a azithromycin 500 mg daily for 3 days and probably will continue episodic dosing of azithromycin to see if we can suppress any infection in the sinuses. Medical Exam Vital signs and Labs for Last 24 Hours: Temp Pulse Resp BP Pulse Ox 98.9 F 69 14 105/61 L 97 07/28/22 07:56 07/28/22 07:56 07/28/22 07:56 07/28/22 07:56 07/28/22 07:56 Laboratory Results - last 24 hr 07/27/22 12:19: Triglycerides 78, Cholesterol 107 L, VLDL Cholesterol 16, HDL Cholesterol 47, Cholesterol/HDL Ratio 2.3 I & O for Labs for Last 24 Hours: Intake & Output 07/25/22 07/26/22 07/27/22 07/28/22 11:59 11:59 11:59 11:59 Intake Total 120 / 120 1080 / 1080 Output Total 200 / 200 151 / 151 Balance -80 / -80 929 / 929 Weight 146 lb 2 oz 146 lb Head: normocephalic ENT: normal exam Neck: normal inspection and full ROM Respiratory: CTA bilaterally, respiratory distress or wheezes Cardiac: Reg Rate and Rhythm and No Murmur GI: soft and tenderness Extremities: edema Skin: intact Neuro: Motor Function Intact, alert and oriented x 3 Assessment and Plan *Assessment and plan (1) ST elevation (STEMI) myocardial infarction: Status: Acute Qualifiers: Involved coronary artery: left circumflex coronary artery Qualified Code(s): I21.21 - ST elevation (STEMI) myocardial infarction involving left circumflex coronary artery Category: Medical Code(s): I21.3 - ST elevation (STEMI) myocardial infarction of unspecified site (2) CAD (coronary artery disease): Status: Chronic Qualifiers: Associated angina: without angina Coronary Disease-Associated Artery/Lesion type: [place] artery [place] vs. transplanted heart: [place] heart Qualified Code(s): I25.10 - Atherosclerotic heart disease of [place] coronary artery without angina pectoris Category: Medical Code(s): I25.10 - Atherosclerotic heart disease of [place] coronary artery without angina pectoris (3) HTN (hypertension): Status: Chronic Qualifiers: Hypertension type: essential hypertension Qualified Code(s): I10 - Essential (primary) hypertension Category: Medical Code(s): I10 - Essential (primary) hypertension (4) Diabetes mellitus: Status: Acute Category: Medical Code(s): E11.9 - Type 2 diabetes mellitus without complications (5) Sinusitis, acute maxillary: Status: Acute Category: Medical Code(s): J01.00 - Acute maxillary sinusitis, unspecified (6) Headache: Status: Acute Category: Medical Code(s): R51.9 - Headache, unspecified Plan CBC and CMP ordered. Will initiate azithromycin 500 mg daily for 3 days. Possible discharge tomorrow.
[2022-07-28 11:17] LABS: Chloride 104 mmol/L (98-107); Potassium 4.1 mmoL/L (3.5-5.1)
[2022-07-28 11:19] LABS: Blood Urea Nitrogen 23 mg/dl (9-20); Creatinine Clearance Estimated 56 mL/min (50-200); Estimated Glomerular Filt Rate 72 ml/min (>60); GFR (African American) 87 ML/MIN (>60)
[2022-07-28 11:20] LABS: Alanine Aminotransferase 38 U/L (12-78); Albumin Level 3.2 g/dl (3.5-5.0); Albumin/Globulin Ratio 1.2 (1.1-1.8); Alkaline Phosphatase 51 U/L (38-126); Aspartate Amino Transferase 163 U/L (17-59); Calcium 9.1 mg/dl (8.4-10.2); Carbon Dioxide 28 mmol/L (22.0-30.0); Globulin 2.7 g/dL (1.3-3.2); Glucose 173 mg/dl (74-100); Total Protein,Serum 5.9 g/dl (6.3-8.2)
[2022-07-28 11:21] LABS: Basophils % 0.2 % (0.1-2.0); Eosinophils % 0.2 % (0.1-12.0); Hematocrit 41.3 % (42.0-52.0); Hemoglobin 13.1 g/dL (14.1-18.0); Lymphocytes # 1.2 K/mm3 (0.7-4.5); Lymphocytes % 11.7 % (10-50); Mean Corpuscular HGB Conc 31.7 g/dL (31.8-35.4); Mean Corpuscular Volume 97.9 fl (80-94); Mean Platelet Volume 8.3 fl (7.4-10.4); Monocytes # 0.7 K/mm3 (0.1-1.0); Monocytes % 7.2 % (1.7-9.3); Neutrophils # 8.1 K/mm3 (1.8-7.8); Neutrophils % 80.8 % (37.0-80.0); Platelet Count 169 K/mm3 (142-424); Red Blood Count 4.22 M/mm3 (4.60-6.20); Red Cell Distribution Width 13.5 % (11.5-17.5)
[2022-07-28 11:41] LABS: Anion Gap 8.1 mEq/L (5-15); Sodium 136 mmol/L (136-145)
--- NOTE | 2022-07-28 19:08 | PC.NURSE ---
Pt is A/ox4. He has walked the halls multiple times. He is ready to go home. He has been eating more then before.
[2022-07-29] VITALS: BP 108/58; PULSE 60; RESP 19; TEMP 36.6; O2SAT 99
[2022-07-29 03:48] VITALS: BP 95/57; PULSE 74; RESP 16; TEMP 36.6; O2SAT 94
[2022-07-29 04:00] VITALS: PULSE 60
--- NOTE | 2022-07-29 04:49 | PC.NURSE ---
pt has slept most of this shift. he is a&oX4. no c/o cp or soa. right femoral cath site dressing c/d/i. no sign of hematoma on R radial cath site. telemetry shows sinus [place]-NSR with HR being 50-60. he has ambulated independently to the bathroom. call light with in reach, no needs at this time.
[2022-07-29 05:47] VITALS: BMI 22.0
[2022-07-29 08:00] VITALS: BP 97/44; PULSE 70; RESP 16; TEMP 36.6; O2SAT 96
[2022-07-29 08:18] VITALS: PULSE 80
[2022-07-29 09:19] LABS: Alanine Aminotransferase 33 U/L (12-78); Alkaline Phosphatase 53 U/L (38-126); Aspartate Amino Transferase 93 U/L (17-59); Bilirubin,Direct 0.3 mg/dl (0.0-0.4); Bilirubin,Indirect 1.5 mg/dL (0.0-0.9); Bilirubin,Total 1.8 mg/dl (0.2-1.3); Bilirubin,Unconjugated 1.5 mg/dL (0.0-1.1); Total Protein,Serum 5.5 g/dl (6.3-8.2)
--- NOTE | 2022-07-29 09:36 | EXP.ACUTE.PN ---
Subjective *Date: 07/29/22 *Time: 09:36 Interval history: He is ready for discharge. He did have some night sweats last night. He has no pain. He was started on the Azithromycin 500mg. Today will be his second dose. A Rx for tomorrow's dose was sent to [facility], as was the Rx for Clopidogrel. His AST and bilirubin have been elevated, but on the decline. Could this be related to his night sweats? Will follow up as outpatient on this Saturday. Medical Exam Vital signs and Labs for Last 24 Hours: Temp Pulse Resp BP Pulse Ox 97.8 F 70 16 97/44 L 96 07/29/22 08:00 07/29/22 08:00 07/29/22 08:00 07/29/22 08:00 07/29/22 08:00 Laboratory Results - last 24 hr 07/28/22 11:05: WBC 10.0 D, RBC 4.22 L, Hgb 13.1 L, Hct 41.3 L, MCV 97.9 H, MCH 31.0, MCHC 31.7 L, RDW 13.5, Plt Count 169 D, MPV 8.3, Neut % (Auto) 80.8 H, Lymph % (Auto) 11.7, Powell % (Auto) 7.2, Eos % (Auto) 0.2, Baso % (Auto) 0.2, Neut # (Auto) 8.1 H, Lymph # (Auto) 1.2, [place] # (Auto) 0.7, Eos # (Auto) 0.0, Baso # (Auto) 0.0 07/28/22 11:05: Sodium 136, Potassium 4.1, Chloride 104, Carbon Dioxide 28, Anion Gap 8.1, BUN 23 H, Creatinine 1.00, Estimated Creat Clear 56, Estimated GFR 72, Est GFR ( Amer) 87, Glucose 173 H, Calcium 9.1, Total Bilirubin 2.0 H, AST 163 H, ALT 38, Alkaline Phosphatase 51, Total Protein 5.9 L, Albumin 3.2 L, Globulin 2.7, Albumin/Globulin Ratio 1.2 07/29/22 08:49: Total Bilirubin 1.8 H, Direct Bilirubin 0.3, Conjugated Bilirubin 0.0, Indirect Bilirubin 1.5 H, Unconjugated Bilirubin 1.5 H, AST 93 H D, ALT 33, Alkaline Phosphatase 53, Total Protein 5.5 L, Albumin 3.0 L I & O for Labs for Last 24 Hours: Intake & Output 07/26/22 07/27/22 07/28/22 07/29/22 11:59 11:59 11:59 11:59 Intake Total 120 / 120 1080 / 1080 720 / 720 Output Total 200 / 200 151 / 151 300 / 300 Balance -80 / -80 929 / 929 420 / 420 Weight 146 lb 2 oz 146 lb 148 lb 12.8 oz Head: normal inspection Eyes: change in vision ENT: normal exam Neck: normal inspection Respiratory: CTA bilaterally Cardiac: Reg Rate and Rhythm and S4 GI: soft, distention, tenderness, guarding, rebound or rigidity Extremities: normal inspection and edema Skin: intact Neuro: alert and oriented x 3 Assessment and Plan *Assessment and plan (1) ST elevation (STEMI) myocardial infarction: Status: Acute Qualifiers: Involved coronary artery: left circumflex coronary artery Qualified Code(s): I21.21 - ST elevation (STEMI) myocardial infarction involving left circumflex coronary artery Category: Medical Code(s): I21.3 - ST elevation (STEMI) myocardial infarction of unspecified site (2) CAD (coronary artery disease): Status: Chronic Qualifiers: Coronary Disease-Associated Artery/Lesion type: [place] artery [place] vs. transplanted heart: [place] heart Associated angina: without angina Qualified Code(s): I25.10 - Atherosclerotic heart disease of [place] coronary artery without angina pectoris Category: Medical Code(s): I25.10 - Atherosclerotic heart disease of [place] coronary artery without angina pectoris (3) Diabetes mellitus: Status: Acute Category: Medical Code(s): E11.9 - Type 2 diabetes mellitus without complications (4) HTN (hypertension): Status: Chronic Qualifiers: Hypertension type: essential hypertension Qualified Code(s): I10 - Essential (primary) hypertension Category: Medical Code(s): I10 - Essential (primary) hypertension (5) Sinusitis, acute maxillary: Status: Acute Category: Medical Code(s): J01.00 - Acute maxillary sinusitis, unspecified (6) Headache: Status: Acute Category: Medical Code(s): R51.9 - Headache, unspecified Plan Discharge today. See med list. Follow up in 2 days in [facility].
[2022-07-29 09:41] LABS: Hemoglobin A1C 6.2 % (4.0-6.0)
--- NOTE | 2022-07-29 20:03 | EXP.DC.SUM ---
General Admission date:: 07/26/22 Discharge date: 07/29/22 HPI HPI HPI: HPI narrative: This is a 81-year-old male with history of ACS status post stenting, hypertension, hyperlipidemia who is presenting with chest pain.? Chest pain has been intermittent for the last couple of days, but today has been persistent for the past 2 or 3 hours.? Onset was 1 patient was laying mulch.? Chest pain is mild, burning/pressure, radiates through to between his shoulder blades and is associated with left upper extremity weakness and tingling.? Denies shortness of breath, nausea, vomiting, diaphoresis, other focal neurologic deficits.? Nothing in particular makes it better, exertion seems to make it worse. ?EKG done upon arrival demonstrated sinus bradycardia at [address] elevations in lead I and aVL with reciprocal depressions in II, III, aVF.? Given this, Web Operations Manager was activated.? Patient was given 325 mg aspirin chewable, 180 mg Brilinta, given 5000 unit heparin bolus.? Chest x-ray obtained.? Pads were placed on patient.? Patient was urgently transferred to Web Operations Manager before results of labs and imaging returned.? Results were relayed to patient who voiced understanding and were agreeable to inpatient admission and management.? Patient was admitted to the hospital for further definitive management, and hemodynamically stable during entire stay in the emergency department. The above as per ER documentation. Patient also has a history of hyperlipidemia, type 2 diabetes mellitus, BPH, And HTN. troponin was 0.26 on admission. Chest x-ray revealed no acute findings. The following AM the patient had some slight left anterior chest discomfort. He denied shortness of breath. He was slightly nauseated and was not able to eat much breakfast. Hospital Course Hospital Course Hospital Course: Patient was admitted after urgently being transferred to the Web Operations Manager for left heart cath. The following impression: Acute ST elevation myocardial infarction involving a highly diagonal artery/ramus intermedius which originates immediately off the left main artery in the proximal LAD.? The vessel was bluntly occluded and cannot be angiographically identified Regional wall motion abnormality with mildly reduced ejection fraction Mildly elevated LVEDP PLAN 1. Dual antiplatelet therapy is still required 2. I recommend medical management for the STEMI.? The origin of the ramus intermedius cannot be identified and I do not recommend probing with a wire so close to the left main artery which could necessitate trifurcating stenting or damaging the LAD and circumflex artery.? Patient is a low risk from a cardiac mortality standpoint with a branch vessel myocardial infarction. 3. It will be important to keep blood pressure and heart rate low and continue with afterload reducing medicine such as MIKE inhibitor's or ARB's.? Avoid steroids as this increases the risk of free wall rupture 4. Continue supportive care 5. Treatment of pain which is currently mild 6. Continue with statin therapy and LDL less than 55 7. Echocardiogram in the morning 8. Patient needs to remain in the hospital for at least 48 hours Patient was followed by cardiology who started patient on aspirin, Plavix, and home dose of metoprolol 25 mg daily and losartan 25 mg daily. Patient did experience some mild chest pain during this admission. He had no dysrhythmias. He did complain of a headache that had been ongoing for a few weeks. Previous recent head CT scan showed subtle thickening of the maxillary sinuses. He was started on Zithromax 500 mg qd x 3 days. On 07/29/2022 pt was ready for discharge. He did experience some night sweats. AST and bilirubin were noted to have been elevated but on the decline. To be followed as an OP. See Data and med reconciliation sheet. To FU in [facility] . Exam Data for Last 24 hours Vital signs and Labs for Last 24 Hours: Temp Pulse Resp BP Pulse Ox 97.8 F 80 16 97/44 L
--- NOTE | 2022-07-31 13:41 | CARE MANAGER ---
Contacted patient's related to hospital discharge. She states he is doing better than he was, but is having some night sweats. He picked up his medications and has follow up appointment with Dr. Munson tomorrow. Denies questions or concerns at this time. LIZBETH Hernández
[2022-08-04 04:54] LABS: Direct LDL Cholesterol 33.79 mg/dL (100-129)
== END 2022-07-29 11:22 | disposition home or self-care (01) | DRG 282 ==
LOC: ER 17:23 → CATHLAB 17:24 → 2ND 07-27 04:52
PROVIDERS: Nurse Practitioner; Admitting Provider Family Medicine; Emergency Provider Emergency Medicine; PCP Family Medicine; Referring Provider Internal Medicine; Visit Provider Family Medicine
PROC: 4A023N7 Measurement of Cardiac Sampling and Pressure, Left Heart, Percutaneous Approach (ICD-10-PCS; principal; 2022-07-26 17:20)
DX: I21.02 ST elevation (STEMI) myocardial infarction involving left anterior descending coronary artery (principal); I10 Essential (primary) hypertension; E78.5 Hyperlipidemia, unspecified; N40.0 Benign prostatic hyperplasia without lower urinary tract symptoms; E11.9 Type 2 diabetes mellitus without complications; Z79.84 Long term (current) use of oral hypoglycemic drugs; R00.1 Bradycardia, unspecified; J01.00 Acute maxillary sinusitis, unspecified; I25.10 Atherosclerotic heart disease of native coronary artery without angina pectoris
CPT/HCPCS: 36415; 70470; 71045; 80048; 80053; 80061; 80076; 83036; 84484; 85025; 93005; 93306; 93458; 99152; 99153; 99285; C1725; C1769; C9803; J1644; Q9967; U0003; U0005

== ENCOUNTER 2022-08-23 08:18 | Outpatient (RCR) | payer MEDICARE, SELFPAY | END 2022-09-20 10:00 | disposition home or self-care (01) | LOC: PT 08:18 | PROVIDERS: Visit Provider Family Medicine | DX: I25.10 Atherosclerotic heart disease of native coronary artery without angina pectoris (principal) | CPT/HCPCS: 93798 ==

== ENCOUNTER 2022-11-23 10:11 | Emergency (ER) | payer MEDICARE, SELFPAY ==
[2022-11-23 10:49] VITALS: BP 0/0; PULSE 0; RESP 0; TEMP -17.7; TEMP 0
== END 2022-11-23 10:49 | disposition left against medical advice (07) ==
LOC: UTC 10:13
PROVIDERS: Emergency Provider Nurse Practitioner; PCP Family Medicine
DX: Z53.8 Procedure and treatment not carried out for other reasons (principal)